=== PATIENT | male | born 1995 ===

== ENCOUNTER 2017-09-30 10:16 | Emergency (ER) | payer OTHER ==
[2017-09-30 10:16] VITALS: BMI 21.5
--- NOTE | 2017-09-30 11:54 | ED PDOC ---
HPI: General Adult Time Seen by Provider: 09/30/17 11:09 Chief Complaint (Nursing): Flu-like Symptoms Chief Complaint (Provider): Flu-like Symptoms History Per: Patient History/Exam Limitations: no limitations Onset/Duration Of Symptoms: Days (x 3-4) Current Symptoms Are (Timing): Still Present Additional Complaint(s): Choco is a 22 y/o male who presents to the ED complaining of cough, cold, congestion, sore throat, body aches, fever, and headache for the past 3-4 days. He denies vomiting or diarrhea. Patient's mom is sick with the flu. He has been taking over the counter medications for his symptoms. PMD: None Provided Past Medical History Reviewed: Historical Data, Nursing Documentation, Vital Signs Vital Signs: Last Vital Signs Temp 99.2 F 09/30/17 11:20 Pulse 76 09/30/17 11:20 Resp 16 09/30/17 11:20 BP 121/60 09/30/17 11:20 Pulse Ox 98 09/30/17 11:20 - Medical History PMH: No Chronic Diseases - Surgical History Surgical History: No Surg Hx - Family History Family History: States: Unknown Family Hx - Immunization History Hx Tetanus Toxoid Vaccination: No Hx Influenza Vaccination: No Hx Pneumococcal Vaccination: No - Home Medications Home Medications: Ambulatory Orders Medication Instructions Recorded Acetaminophen [Tylenol] 325 mg PO Q6 PRN #30 tab 12/06/15 Ibuprofen [Motrin] 600 mg PO Q6 PRN #20 tab 09/30/17 Promethazine/Codeine 5 ml PO Q6 PRN #100 ml 09/30/17 [Phenergan/Codeine Oral Syrup] - Allergies Allergies/Adverse Reactions: Allergies Allergy/AdvReac Type Severity Reaction Status Date / Time No Known Allergies Allergy Verified 04/14/16 18:39 Review of Systems ROS Statement: Except As Marked, All Systems Reviewed And Found Negative Constitutional: Positive for: Fever ENT: Positive for: Nose Congestion, Throat Pain Cardiovascular: Negative for: Chest Pain Respiratory: Positive for: Cough. Negative for: Shortness of Breath Gastrointestinal: Negative for: Vomiting, Diarrhea Musculoskeletal: Positive for: Back Pain Neurological: Positive for: Headache Physical Exam - Reviewed Nursing Documentation Reviewed: Yes Vital Signs Reviewed: Yes - Physical Exam Appears: Positive for: No Acute Distress Head Exam: Positive for: ATRAUMATIC, NORMOCEPHALIC Skin: Positive for: Normal Color, Warm, Dry. Negative for: Rash Eye Exam: Positive for: EOMI, Normal appearance, PERRL ENT: Positive for: Nasal Congestion, Pharyngeal Erythema (mild) Neck: Positive for: Normal, Painless ROM, Supple Cardiovascular/Chest: Positive for: Regular Rate, Rhythm. Negative for: Murmur Respiratory: Positive for: Normal Breath Sounds. Negative for: Respiratory Distress Gastrointestinal/Abdominal: Positive for: Normal Exam, Soft. Negative for: Tenderness Back: Positive for: Normal Inspection Extremity: Positive for: Normal ROM. Negative for: Pedal Edema, Deformity Neurologic/Psych: Positive for: Alert, Oriented. Negative for: Motor/Sensory Deficits Medical Decision Making Medical Decision Making: Time: 11:47 Initial Impression: Flu, rule out pneumonia Initial Plan: --Chest XR --Will treat patient for flu as there are no flu tests and patient exhibits flu- like symptoms. Scribe Attestation: Documented by Popeye Mullins, acting as a scribe for Dr. Hoang Kapoor MD. Provider Scribe Attestation: All medical record entries made by the Scribe were at my direction and personally dictated by me. I have reviewed the chart and agree that the record accurately reflects my personal performance of the history, physical exam, medical decision making, and the department course for this patient. I have also personally directed, reviewed, and agree with the discharge instructions and disposition. Disposition - Clinical Impression Clinical Impression: Influenza - Patient ED Disposition Is Patient to be Admitted: No Doctor Will See Patient In The: Office Counseled Patient/Family Regarding: Studies Performed, Diagnosis, Need For Followup - Disposition Referrals: [facility] [Outside] Disposition: Routine/Home Disposition Time: 12:59 Condition: GOOD Additional Instructions: Take your medications as instructed. Follow up with your PCP in 2-3 days. Prescriptions: Ibuprofen [Motrin] 600 mg PO Q6 PRN #20 tab PRN Reason: Cough Promethazine/Codeine [Phenergan/Codeine Oral Syrup] 5 ml PO Q6 PRN #100 ml PRN Reason: Cough Instructions: Influenza (ED)
[2017-09-30 12:01] VITALS: BP 121/60; PULSE 76; RESP 16; TEMP 99.2; O2SAT 98
== END 2017-09-30 13:08 | disposition home or self-care (01) ==
LOC: H.ER 10:16
DX: J11.1 Influenza due to unidentified influenza virus with other respiratory manifestations (principal)